=== PATIENT | male | born 1975 ===

== ENCOUNTER 2020-09-04 14:23 | Emergency (ER) | payer BC ==
[2020-09-04] MEDS ORDERED: Sodium Chloride 0.9% 2.5 ML Syringe FLUSH PRN (14:27)
[2020-09-04] MEDS ORDERED: Sodium Chloride 0.9% 10 ML Syringe FLUSH PRN (14:27)
[2020-09-04] MEDS ORDERED: Aspirin 81 MG Tab.Chew PO ONE (14:27)
--- NOTE | 2020-09-04 14:43 | EDM.PDOC ---
ED HPI GENERAL MEDICAL PROBLEM - General Chief Complaint: Chest Pain Stated Complaint: TRANSFER FROM CLINIC Time Seen by Provider: 09/04/20 14:30 Source of Information: Reports: Patient History Limitations: Reports: No Limitations - History of Present Illness INITIAL COMMENTS - FREE TEXT/NARRATIVE: 44-year-old male presents with anterior diffuse chest discomfort. He was seen a t the primary care clinic by his PA just prior to arrival for chest discomfort currently rated 7/10 that started since Wednesday afternoon, described as aching sensation, constant, radiating to the throat, no alleviating or exacerbating factors associated with myalgia. Denies fever, chills, nausea, vomiting, shortness of breath, abdominal pain, palpitations. He is a smoker. ROS: A 10-point review of systems, other than pertinent positives and negatives as stated per HPI, is otherwise negative Past medical history: No additional pertinent history Past Surgical history: No additional pertinent history Social history: No additional pertinent history Family history: No additional pertinent history PHYSICAL EXAM General: AOx4, GCS = 15, No distress HEENT: dry mucous membrane Neck: supple, no meningismus, no Kernig or Brudzinski Cardiac: S1S2 RRR Respiratory: CTAB, no crackles or rales, no wheezing Abdomen: Soft, nontender, no rebound or guarding, nondistended, no pulsatile mass. Back: nontender Musculoskeletal: NVI distally, no deformity Neuro: No focal deficits, CN 2 - 12 WNL. chest Pain Score (Numeric/FACES): 7 - Related Data Allergies Allergy/AdvReac Type Severity Reaction Status Date / Time No Known Allergies Allergy Verified 09/04/20 14:31 Home Meds: Home Meds . [No Known Home Meds] 09/04/20 [History] Past Medical History - Past Health History Medical/Surgical History: Denies Medical/Surgical History Social & Family History - Tobacco Use Tobacco Use Status *Q: Current Every Day Tobacco User Years of Tobacco use: 15 Packs/Tins Daily: 1.5 - Recreational Drug Use Recreational Drug Use: No ED ROS GENERAL - Review of Systems Review Of Systems: See Below (see dictation) ED EXAM, GENERAL - Physical Exam Exam: See Below (see dictation) #1 Interpretation EKG Interpretation Comments: Heart rate = 97 bpm, normal sinus rhythm, normal QRS interval, STEMI in II, III, AVF, with reciprocal depression. EKG and rhythm strip interpreted by me at 1431 #2 Interpretation EKG Interpretation Comments: Heart rate = 105 bpm, sinus tachycardia, normal sinus rhythm, normal QRS interval, ST elevation in 2, 3, aVF consistent with STEMI. EKG and rhythm strip interpreted by me at 1518 Course - Vital Signs Last Recorded V/S: Last Vital Signs Temp 97.4 F 09/04/20 14:32 Pulse 103 H 09/04/20 14:32 Resp 17 09/04/20 14:32 BP 127/99 H 09/04/20 14:32 Pulse Ox 97 09/04/20 14:32 - Orders/Labs/Meds Orders: Active Orders 24 hr Category Date Time Status EKG Documentation Completion [RC] STAT Care 09/04/20 14:27 Active COMPREHENSIVE METABOLIC PN,CMP [CHEM] Stat Lab 09/04/20 14:41 Received INR,PT,PROTHROMBIN TIME [COAG] Stat Lab 09/04/20 14:46 Ordered TROPONIN I [CHEM] Stat Lab 09/04/20 14:41 Received Heparin Sod,Pork In 0.45% Nacl [Heparin-1/2Ns 25,000 Med 09/04/20 14:45 Active Units/500] 25,000 unit in 500 ml IV TITRATE Lactated Ringers [Ringers, Lactated] 1,000 ml Med 09/04/20 14:51 Active IV .BOLUS Sodium Chloride 0.9% [Saline Flush] Med 09/04/20 14:27 Active 10 ml FLUSH ASDIRECTED PRN Sodium Chloride 0.9% [Saline Flush] Med 09/04/20 14:27 Active 2.5 ml FLUSH ASDIRECTED PRN Saline Lock Insert [OM.PC] Stat Oth 09/04/20 14:27 Ordered Medication Orders Heparin Sodium/Sodium Chloride (Heparin-1/2ns 25,000 Units/500) 25,000 unit in 500 mls @ 16.765 mls/hr IV TITRATE CECILIA; Protocol Last Admin: 09/04/20 14:59 Dose: 12 units/kg/hr, 16.765 mls/hr Documented by: DAVE Cosigned by: [id number] Lactated Ringer's (Ringers, Lactated) 1,000 mls @ 999 mls/hr IV .BOLUS ONE Stop: 09/04/20 15:51 Last Admin: 09/04/20 14:58 Dose: 999 mls/hr Documented by: DAVE Sodium Chloride (Saline Flush) 10 ml FLUSH ASDIRECTED PRN PRN Reason: Keep Vein Open Last Admin: 09/04/20 14:38 Dose: 10 ml Documented by: MICHELINE Sodium Chloride (Saline Flush) 2.5 ml FLUSH ASDIRECTED PRN PRN Reason: Keep Vein Open Last Admin: 09/04/20 14:38 Dose: 2.5 ml Documented by: MICHELINE Labs: Laboratory Tests 09/04/20 09/04/20 Range/Units 14:40 14:41 WBC 20.33 H (4.0-11.0) K/uL RBC 5.22 (4.50-5.90) M/uL Hgb 16.8 (13.0-17.0) g/dL Hct 49.0 (38.0-50.0) % MCV 93.9 (80.0-98.0) fL MCH 32.2 H (27.0-32.0) pg MCHC 34.3 (31.0-37.0) g/dL RDW Std Deviation 45.2 (28.0-62.0) fl RDW Coeff of Alex 13 (11.0-15.0) % Plt Count 315 (150-400) K/uL MPV 9.50 (7.40-12.00) fL Neut % (Auto) 74.4 (48.0-80.0) % Lymph % (Auto) 17.1 (16.0-40.0) % [place] % (Auto) 8.0 (0.0-15.0) % Eos % (Auto) 0.3 (0.0-7.0) % Baso % (Auto) 0.2 (0.0-1.5) % Neut # (Auto) 15.1 H (1.4-5.7) K/uL Lymph # (Auto) 3.5 H (0.6-2.4) K/uL [place] # (Auto) 1.6 H (0.0-0.8) K/uL Eos # (Auto) 0.1 (0.0-0.7) K/uL Baso # (Auto) 0.1 (0.0-0.1) K/uL Nucleated RBC % 0.0 /100WBC Nucleated RBCs # 0 K/uL Urine Opiates Screen NEGATIVE (NEGATIVE) Ur Oxycodone Screen NEGATIVE (NEGATIVE) Urine Methadone Screen NEGATIVE (NEGATIVE) Ur Barbiturates Screen NEGATIVE (NEGATIVE) Ur Phencyclidine Scrn NEGATIVE (NEGATIVE) Ur Amphetamine Screen NEGATIVE (NEGATIVE) U Methamphetamines Scrn NEGATIVE (NEGATIVE) U Benzodiazepines Scrn NEGATIVE (NEGATIVE) U Cocaine Metab Screen NEGATIVE (NEGATIVE) U Marijuana (THC) Screen NEGATIVE (NEGATIVE) Meds: Medications Generic Name Dose Route Start Last Admin Trade Name Freq PRN Reason Stop Dose Admin Heparin Sodium/Sodium Chloride 25,000 unit in 500 mls @ 16.765 mls/hr 09/04/20 14:45 09/04/20 14:59 Heparin-1/2ns 25,000 Units/500 IV 12 units/kg/hr TITRATE CECILIA 16.765 mls/hr Administration Protocol 12 UNITS/KG/HR Lactated Ringer's 1,000 mls @ 999 mls/hr 09/04/20 14:51 09/04/20 14:58 Ringers, Lactated IV 09/04/20 15:51 999 mls/hr .BOLUS ONE Administration Sodium Chloride 10 ml 09/04/20 14:27 09/04/20 14:38 Saline Flush FLUSH 10 ml ASDIRECTED PRN Administration Keep Vein Open Sodium Chloride 2.5 ml 09/04/20 14:27 09/04/20 14:38 Saline Flush FLUSH 2.5 ml ASDIRECTED PRN Administration Keep Vein Open Discontinued Medications Generic Name Dose Route Start Last Admin Trade Name Freq PRN Reason Stop Dose Admin Aspirin 324 mg 09/04/20 14:27 09/04/20 14:37 Aspirin PO 09/04/20 14:28 324 mg ONETIME ONE Administration Clopidogrel Bisulfate 300 mg 09/04/20 14:45 09/04/20 14:56 Plavix PO 09/04/20 14:46 300 mg ONETIME ONE Administration Heparin Sodium (Porcine) 3,840 units 09/04/20 14:45 09/04/20 14:56 Heparin Sodium IVPUSH 09/04/20 14:46 3,840 units ONETIME ONE Administration Morphine Sulfate 4 mg 09/04/20 14:46 09/04/20 14:57 Morphine IVPUSH 09/04/20 14:47 4 mg ONETIME ONE Administration Tenecteplase 35 mg 09/04/20 14:44 09/04/20 14:58 Tnkase IV 09/04/20 14:45 35 mg ONETIME ONE Administration Protocol - Re-Assessments/Exams Free Text/Narrative Re-Assessment/Exam: 09/04/20 14:31 STEMI activation called, patient given 324 mg p.o. ASA, morphine 4 mg IV, heparin bolus and drip, TNKase. 09/04/20 14:49 Patient will require transfer to outside facility for the need of higher level of care not available at this facility, and the need for data governance consultant services unavailable at this facility. Any emergency conditions have been stabilized to the ability of the ED prior to the transfer. Case was discussed and accepted by Dr. Ray Chung, will accept transfer to [facility]. 09/04/20 15:17 Flight crew here to take patient. Departure - Departure Time of Disposition: 14:52 Disposition: DC/Tfer to Other 70 Condition: Good Clinical Impression: STEMI (ST elevation myocardial infarction) - Discharge Information *PRESCRIPTION DRUG MONITORING PROGRAM REVIEWED*: Not Applicable *COPY OF PRESCRIPTION DRUG MONITORING REPORT IN PATIENT ANGUS: Not Applicable Referrals: Lyn Padilla PA [Primary Care Provider] - Forms: ED Department Discharge Critical Care Note - Critical Care Note Comments: CRITCAL CARE: The high probability of sudden, clinically significant deterioration in the patient's condition required the highest level of my preparedness to intervene urgently. The services I provided to this patient were to treat and/or prevent clinically significant deterioration. Services included the following: chart data review, reviewing nursing notes and/or old charts, documentation time, data governance consultant collaboration regarding findings and treatment options, medication orders and management, direct patient care, vital sign assessments and ordering, interpreting and reviewing diagnostic studies/lab tests. Aggregate critical care time includes only time during which I was engaged in work directly related to the patient's care, as described above, whether at the bedside or elsewhere in the Emergency Department. It did not include time spent performing other reported procedures or the services of residents, students, nurses or physician assistants. Frequent interventions and/or frequent repeat evaluations were required as well as counseling and coordination of care regarding prognosis, treatments, and discussions with patient, staff and consultants. Critical Care (excluding other procedures): 40 minutes Sepsis Event Note (ED) - Evaluation Sepsis Screening Result: No Definite Risk - Focused Exam Vital Signs: Vital Signs Temp Pulse Resp BP Pulse Ox 09/04/20 14:32 97.4 F 103 H 17 127/99 H 97 - My Orders Last 24 Hours: My Active Orders 09/04/20 14:45 Heparin Sod,Pork In 0.45% Nacl [Heparin-1/2Ns 25,000 Units/500] 25,000 unit in 500 ml IV TITRATE 09/04/20 14:46 INR,PT,PROTHROMBIN TIME [COAG] Stat 09/04/20 14:51 Lactated Ringers [Ringers, Lactated] 1,000 ml IV .BOLUS - Assessment/Plan Last 24 Hours: My Active Orders 09/04/20 14:45 Heparin Sod,Pork In 0.45% Nacl [Heparin-1/2Ns 25,000 Units/500] 25,000 unit in 500 ml IV TITRATE 09/04/20 14:46 INR,PT,PROTHROMBIN TIME [COAG] Stat 09/04/20 14:51 Lactated Ringers [Ringers, Lactated] 1,000 ml IV .BOLUS
[2020-09-04] MEDS ORDERED: Tenecteplase 50 MG Kit IV ONE (14:44)
[2020-09-04] MEDS ORDERED: Clopidogrel 75 MG Tab PO ONE (14:45)
[2020-09-04] MEDS ORDERED: Heparin Sodium 5,000 Units/ML Vial IVPUSH ONE (14:45)
[2020-09-04] MEDS ORDERED: Heparin Sod,Pork In 0.45% Nacl 25,000 UNIT/500 ML IV.SOLN IV SCH (14:45)
[2020-09-04] MEDS ORDERED: Morphine 4 MG/ML Syringe IVPUSH ONE (14:46)
[2020-09-04] MEDS ORDERED: Lactated Ringers 1,000 ML IV ONE (14:51)
--- NOTE | 2020-09-04 15:04 | CR ---
INDICATION: Chest pain TECHNIQUE: AP view of the chest COMPARISON: None FINDINGS: The lungs are clear. There is no sizable pleural effusion or pneumothorax. The cardiomediastinal silhouette is normal. The visualized osseous structures are unremarkable. IMPRESSION: No acute intrathoracic process. Dictated by Jerod Riley MD @ Sep 04 2020 3:01PM Signed by Dr. Jerod Riley @ Sep 04 2020 3:02PM
[2020-09-04 15:19] LABS: BLOOD UREA NITROGEN,BUN 3 mg/dL (7.0-18.0); CARBON DIOXIDE,CO2 29.3 mmol/L (21.0-32.0); CHLORIDE,CL 102 mmol/L (98-107); GLUCOSE RANDOM 115 mg/dL (74-106); POTASSIUM,K 3.5 mmol/L (3.5-5.1); SODIUM,NA 141 mmol/L (136-148)
== END 2020-09-04 15:30 | disposition other institution (70) ==
LOC: MW.ED 14:23
DX: I21.3 ST elevation (STEMI) myocardial infarction of unspecified site (principal); F17.210 Nicotine dependence, cigarettes, uncomplicated; R00.0 Tachycardia, unspecified
CPT/HCPCS: 36415; 71045; 80053; 80305; 84484; 85025; 85610; 93005; 96365; 96375; 99285; A9270; J1644; J2270; J3101; J7120; 93010; 99291